=== PATIENT | male | born 1935 | race Caucasian/White ===

== ENCOUNTER 2017-05-21 15:01 | Observation (INO) | payer MEDICARE ==
[~2017-05-21] VITALS: Ht 162.6 cm; Wt 81.0 kg
[2017-05-21] VITALS (7 sets, daily range): BP systolic 120–142; BP diastolic 56–70; PULSE 71–97; RESP 16–18; TEMP 97.5–98.4; O2SAT 95–99
--- NOTE | 2017-05-21 15:14 | PD ---
HPI Chief Complaint: syncope Time Seen by Provider: 15:05 Travel History International Travel<30 days: No Contact w/Intl Traveler<30days: No History of Present Illness HPI 81-year-old male after he climbed a wall had a syncopal event and was found in the parking lot. Patient has an abrasion to the back of his head and his elbow but denies specific complaints at this time. He was called a STEMI alert by the ambulance team as he had a left bundle branch block. Patient does note he is a heart patient but denies any cardiac symptoms currently. He states he is here from [place] and has been here since March. He denies being at her hospital before. He is unsure if he's had a history of a bundle branch block or not. Initial history is limited from patient. [facility] Past Medical History Narrative Medical Hypertension, high cholesterol, coronary artery disease Past Surgical History Narrative Surgical CABG, 6 heart stents, defibrillator Social History Tobacco Use: No Allergies-Medications (Allergen,Severity, Reaction): Coded Allergies: No Known Allergies (Unverified , 05/21/17) Reported Meds & Prescriptions Reported Meds & Active Scripts Active Reported Metoprolol Succinate ER 24 HR (Metoprolol Succinate) 25 Mg Tab 12.5 Mg PO DAILY Crestor (Rosuvastatin Calcium) 5 Mg Tab 5 Mg PO DAILY Entresto (Sacubitril-Valsartan) 97-103 Mg Tab 1 Tab PO BID Aspirin 81 Mg Chew 81 Mg CHEW DAILY Plavix (Clopidogrel Bisulfate) 75 Mg Tab 75 Mg PO DAILY Review of Systems Except as stated in HPI: all other systems reviewed are Neg Physical Exam Narrative GENERAL: 81-year-old male in no apparent distress SKIN: Focused skin assessment warm/dry. Abrasion to right elbow HEAD: Small abrasion to back of head. Normocephalic. EYES: Pupils equal and round. No scleral icterus. No injection or drainage. ENT: No nasal bleeding or discharge. Mucous membranes pink and moist. NECK: Trachea midline. CARDIOVASCULAR: Regular rate and rhythm. RESPIRATORY: No accessory muscle use. Clear to auscultation. Breath sounds equal bilaterally. GASTROINTESTINAL: Abdomen soft, non-tender, nondistended. MUSCULOSKELETAL: No obvious deformities. No clubbing. No cyanosis. No edema. NEUROLOGICAL: Awake. Motor grossly within normal limits. Normal speech. Data Data Last Documented VS Vital Signs Date Time Temp Pulse Resp B/P (MAP) Pulse Ox O2 Delivery O2 Flow Rate FiO2 05/21/17 17:04 133/70 (91) 05/21/17 17:01 77 16 99 Room Air 05/21/17 15:07 97.5 Orders Orders Complete Blood Count With Diff (05/21/17 15:06) Prothrombin Time / Inr (Pt) (05/21/17 15:06) Act Partial Throm Time (Ptt) (05/21/17 15:06) Type And Screen (05/21/17 15:06) Chest, Single Ap (05/21/17 15:06) Ct Brain W/O Iv Contrast(Rout) (05/21/17 15:06) Electrocardiogram (05/21/17 15:06) Iv Access Insert/Monitor (05/21/17 15:06) Ecg Monitoring (05/21/17 15:06) Oximetry (05/21/17 15:06) Sodium Chloride 0.9% Flush (Ns Flush) (05/21/17 15:15) Ckmb (Isoenzyme) Profile (05/21/17 15:06) Comprehensive Metabolic Panel (05/21/17 15:06) Magnesium (Mg) (05/21/17 15:06) Troponin I (05/21/17 15:06) Bilateral Bp Monitoring (05/21/17 15:06) Sodium Chloride 0.9% Flush (Ns Flush) (05/21/17 15:15) Elbow, Complete (4 Vws) (05/21/17 ) Admit Order (Ed Use Only) (05/21/17 17:50) Consult Cardiology (05/21/17 ) Labs Laboratory Tests Test 05/21/17 15:30 White Blood Count 7.3 TH/MM3 Red Blood Count 4.32 MIL/MM3 Hemoglobin 13.8 GM/DL Hematocrit 40.4 % Mean Corpuscular Volume 93.5 FL Mean Corpuscular Hemoglobin 32.0 PG Mean Corpuscular Hemoglobin Concent 34.2 % Red Cell Distribution Width 13.5 % Platelet Count 99 TH/MM3 Mean Platelet Volume 9.6 FL Neutrophils (%) (Auto) 77.5 % Lymphocytes (%) (Auto) 13.8 % Monocytes (%) (Auto) 8.2 % Eosinophils (%) (Auto) 0.2 % Basophils (%) (Auto) 0.3 % Neutrophils # (Auto) 5.7 TH/MM3 Lymphocytes # (Auto) 1.0 TH/MM3 Monocytes # (Auto) 0.6 TH/MM3 Eosinophils # (Auto) 0.0 TH/MM3 Basophils # (Auto) 0.0 TH/MM3 CBC Comment AUTO DIFF Differential Comment AUTO DIFF CONFIRMED Platelet Estimate LOW Platelet Morphology Comment NORMAL Prothrombin Time 10.9 SEC Prothromb Time International Ratio 1.1 RATIO Activated Partial Thromboplast Time 24.0 SEC Blood Urea Nitrogen 16 MG/DL Creatinine 1.14 MG/DL Random Glucose 104 MG/DL Total Protein 7.0 GM/DL Albumin 3.8 GM/DL Calcium Level 8.8 MG/DL Magnesium Level 1.8 MG/DL Alkaline Phosphatase 58 U/L Aspartate Amino Transf (AST/SGOT) 15 U/L Alanine Aminotransferase (ALT/SGPT) 21 U/L Total Bilirubin 1.3 MG/DL Sodium Level 141 MEQ/L Potassium Level 3.7 MEQ/L Chloride Level 105 MEQ/L Carbon Dioxide Level 26.3 MEQ/L Anion Gap 10 MEQ/L Estimat Glomerular Filtration Rate 61 ML/MIN Total Creatine Kinase 89 U/L Troponin I LESS THAN 0.02 NG/ML MDM Medical Decision Making Medical Screen Exam Complete: Yes Emergency Medical Condition: Yes Medical Record Reviewed: Yes (past history confirmed) Interpretation(s) EKG is sinus rhythm at 90 with left bundle branch block without prior for comparison CBC & BMP Diagram 05/21/17 15:30 Total Protein 7.0, Albumin 3.8, Calcium Level 8.8, Magnesium Level 1.8, Alkaline Phosphatase 58, Aspartate Amino Transf (AST/SGOT) 15, Alanine Aminotransferase (ALT/SGPT) 21, Total Bilirubin 1.3 H Last [address] 05/21/17 1506 Signed Impressions: Service Date/Time: Sunday, May 21, 2017 15:31 - CONCLUSION: 1. Senescent changes without acute intracranial abnormality. Aristeo Pedro MD Chest X-Ray 05/21/17 1506 Signed Impressions: Service Date/Time: Sunday, May 21, 2017 15:17 - CONCLUSION: Blunting of the left costophrenic angle either relating to a small effusion or pleural/ proximal scarring. Ryan Garnett Jr., MD Elbow X-Ray 05/21/17 0000 Signed Impressions: Service Date/Time: Sunday, May 21, 2017 15:21 - CONCLUSION: Osteoarthritic changes. No fracture observed. Ryan Garnett Jr., MD Differential Diagnosis Intercranial hemorrhage, fracture, vasovagal, cardiac Narrative Course Will check blood work, imaging and have his defibrillator interrogated and reevaluate, patient currently without any chest pain or shortness of breath so will not call STEMI alert but discuss with cardiology Lab work without emergent findings. Still awaiting pacemaker interrogation. Patient updated and agrees to admit to the hospital for further care. Physician Communication Physician Communication dr arredondo agrees to no stemi given symptoms dr dallas agrees to admit Diagnosis Primary Impression: Syncope Qualified Codes: R55 - Syncope and collapse Additional Impression: S/P CABG (coronary artery bypass graft) Admitting Information Admitting Physician Requests: Observation Martha Santos MD May 21, 2017 15:14
[2017-05-21] MEDS ORDERED: SODIUM CHLORIDE 0.9% FLUSH 10 ML FLUSH IVF PRN ×2 (15:15)
--- NOTE | 2017-05-21 15:34 | RADRPT ---
EXAM DATE/TIME: 05/21/2017 15:17 [facility] COMPARISON: No previous studies available for comparison. INDICATIONS : Trauma to chest post fall today MEDICAL HISTORY : Cardiovascular disease. SURGICAL HISTORY : Stent placement, defibrillator ENCOUNTER: Initial ACUITY: 1 day PAIN SCORE: 0/10 LOCATION: Bilateral chest FINDINGS: A single portable frontal view the chest shows blunting of the left costophrenic angle. No infiltrate s. Heart is at the upper limits of normal in terms of size. Median sternotomy wires. Right-sided paci ng device. No pneumothorax. No appreciable rib fractures. CONCLUSION: Blunting of the left costophrenic angle either relating to a small effusion or pleural/proximal scarr ing. Ryan Garnett Jr., MD on May 21, 2017 at 15:30 Board Certified Radiologist. This report was verified electronically.
--- NOTE | 2017-05-21 15:40 | RADRPT ---
EXAM DATE/TIME: 05/21/2017 15:21 [facility] COMPARISON: No previous studies available for comparison. INDICATIONS : Right elbow pain post fall today MEDICAL HISTORY : None. SURGICAL HISTORY : None. ENCOUNTER: Initial ACUITY: 1 day PAIN SCORE: 8/10 LOCATION: Right entire elbow FINDINGS: 4 views of the right elbow show osteoarthritic changes. Enthesophyte extending off the olecranon proc ess. No fracture or dislocation. No joint effusion. Soft tissues are unremarkable. CONCLUSION: Osteoarthritic changes. No fracture observed. Ryan Garnett Jr., MD on May 21, 2017 at 15:34 Board Certified Radiologist. This report was verified electronically.
--- NOTE | 2017-05-21 15:41 | RADRPT ---
EXAM DATE/TIME: 05/21/2017 15:31 [facility] COMPARISON: No previous studies available for comparison. INDICATIONS : Syncope, fall, laceration to top right of head RADIATION DOSE: 37.07 CTDIvol (mGy) MEDICAL HISTORY : Hypertension. Cardiovascular disease SURGICAL HISTORY : CABG Carotid stent.Defibrillator. ENCOUNTER: Initial ACUITY: 1 day PAIN SCALE: 4/10 LOCATION: Right cranial TECHNIQUE: Multiple contiguous axial images were obtained of the head. Using automated exposure control and adj ustment of the mA and/or kV according to patient size, radiation dose was kept as low as reasonably a chievable to obtain optimal diagnostic quality images. DICOM format image data is available electro nically for review and comparison. FINDINGS: CEREBRUM: Mild to moderate diffuse renal atrophy. The ventricles are normal for degree of atrophy. No evidence of midline shift, mass lesion, hemorrhage or acute infarction. No extra-axial fluid collections are seen. POSTERIOR FOSSA: The cerebellum and brainstem are intact. The 4th ventricle is midline. The cerebellopontine angle i s unremarkable. EXTRACRANIAL: The visualized portion of the orbits is intact. SKULL: The calvaria is intact. No evidence of skull fracture. CONCLUSION: 1. Senescent changes without acute intracranial abnormality. Aristeo Pedro MD on May 21, 2017 at 15:36 Board Certified Radiologist. This report was verified electronically.
[2017-05-21 16:03] LABS: AUTOMATED NEUTROPHIL # 5.7 TH/MM3 (1.8-7.7); BASOPHIL % 0.3 % (0.0-2.0); EOSINOPHIL % 0.2 % (0.0-4.0); HEMATOCRIT 40.4 % (39.0-51.0); HEMOGLOBIN 13.8 GM/DL (13.0-17.0); LYMPH % 13.8 % (9.0-44.0); MEAN CELL VOLUME 93.5 FL (80.0-100.0); MEAN CORPUSCULAR HGB CONC 34.2 % (32.0-36.0); MEAN PLATELET VOLUME 9.6 FL (7.0-11.0); MONO % 8.2 % (0.0-8.0); MONOCYTE # 0.6 TH/MM3 (0-0.9); NEUT % 77.5 % (16.0-70.0); PLATELET COUNT 99 TH/MM3 (150-450); RED BLOOD COUNT 4.32 MIL/MM3 (4.50-5.90); RED CELL DISTRIBUTION WIDTH 13.5 % (11.6-17.2); WHITE BLOOD COUNT 7.3 TH/MM3 (4.0-11.0)
[2017-05-21 16:07] LABS: INTERNATIONAL NORMALIZED RATIO 1.1 RATIO; PROTHROMBIN TIME - PATIENT 10.9 SEC (9.8-11.6)
[2017-05-21 16:28] LABS: ALBUMIN 3.8 GM/DL (3.4-5.0); ALT (GPT) 21 U/L (12-78); BICARBONATE 26.3 MEQ/L (21.0-32.0); BLOOD UREA NITROGEN 16 MG/DL (7-18); CALCIUM 8.8 MG/DL (8.5-10.1); CHLORIDE 105 MEQ/L (98-107); CREATININE 1.14 MG/DL (0.60-1.30); GLOMERULAR FILTRATION RATE 61 ML/MIN (>89); GLUCOSE,RANDOM 104 MG/DL (74-106); MAGNESIUM 1.8 MG/DL (1.5-2.5); SODIUM (NA) 141 MEQ/L (136-145)
[2017-05-21 16:32] LABS: ALKALINE PHOSPHATASE 58 U/L (45-117); AST (GOT) 15 U/L (15-37); TOTAL BILIRUBIN ADULT 1.3 MG/DL (0.2-1.0); TROPONIN I LESS THAN 0.02 NG/ML (0.02-0.05)
[2017-05-21] MEDS ORDERED: PLAV75TA29 PO (17:08)
[2017-05-21] MEDS ORDERED: METO1TAB42 PO (17:08)
[2017-05-21] MEDS ORDERED: ROSU5 PO (17:08)
[2017-05-21] MEDS ORDERED: SACU1TAB4 PO (17:08)
[2017-05-21] MEDS ORDERED: ASPI-516 CHEW (17:08)
[2017-05-21] MEDS ORDERED: ACETAMINOPHEN/HYDROcodone 325 MG/7.5 MG TAB PO PRN (18:30)
[2017-05-21] MEDS ORDERED: MAGNESIUM HYDROXIDE SUSP 30 ML CUP PO PRN (18:30)
[2017-05-21] MEDS ORDERED: ONDANSETRON HCL 4 MG/2 ML VIAL IVP PRN (18:30)
[2017-05-21] MEDS ORDERED: SENNOSIDES 8.6 MG TAB PO PRN (18:30)
[2017-05-21] MEDS ORDERED: ACETAMINOPHEN/HYDROcodone 325 MG/5 MG TAB PO PRN (18:30)
[2017-05-21] MEDS ORDERED: MORPHINE SULFATE 2 MG/ML INJ IV PUSH PRN (18:30)
[2017-05-21] MEDS ORDERED: NALOXONE HCL 0.4 MG/ML AMP IV PUSH PRN (18:30)
[2017-05-21] MEDS: HEPARIN SODIUM - SQ 10,000 UNITS/ML VIAL SQ SCH (19:00)
[2017-05-21] MEDS ORDERED: FISHCAP4 PO (20:07)
[2017-05-21] MEDS: DOCUSATE SODIUM 50 MG/SENNA 8.6 MG TAB PO SCH (20:08)
[2017-05-21 20:52] LABS: TROPONIN I 0.03 NG/ML (0.02-0.05)
--- NOTE | 2017-05-21 23:21 | HHI.HP ---
HPI Service [facility] Physician Unknown Admission Diagnosis syncope Diagnoses: (1) Ventricular fibrillation (2) Syncope and collapse (3) Defibrillator discharge Chief Complaint: Syncope with collapse Travel History International Travel<30 Days: No Contact w/Intl Traveler <30 Da: No Traveled to Known Affected Are: No History of Present Illness Mr. 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 The patient was admitted to the hospitalist group for observation and continued medical management. The patient was out fishing today and got back to the dock from the [employer] ship. He hopped up a wall and exerted himself slightly when getting off the boat instead of taking the stairs. He walked to his car and threw his 3 fish into to the backseat and collapsed outside the car. He denied any dizziness, chest pain, shortness of breath, nausea, diaphoresis, or palpitations prior to the syncopal episode. He had a similar episode 2 years ago prior to his last stent placement and fell off a ladder at that time. He has never felt his AICD fire and it fired three times to revive him per AICD interrogation here in the ED. Review of Systems Except as stated in HPI: all other systems reviewed are Neg Past Family Social History Past Medical History Cardiomyopathy status post AICD in 2007 Coronary artery disease status post 6 heart stents with the last one placed 2 years ago and CABG 3 in 1994 Degenerative arthritis Hypertension Hyperlipidemia Obstructive sleep apnea -wears CPAP when home in [place] Denies diabetes mellitus, lung disease such as COPD/asthma, atrial fibrillation , liver disease, kidney disease, DVT, PE, CVA, hypothyroidism, or cancer . Past Surgical History CABG 3 in 1994 Heart stent placement 6 with the most recent one placed 2 years ago Reported Medications Reported Meds & Active Scripts Active Reported Fish Oil + D3 (Fish Oil-Cholecalciferol) 1,200-1,000 Mg-Unit Cap 1 Cap PO DAILY Metoprolol Succinate ER 24 HR (Metoprolol Succinate) 25 Mg Tab 12.5 Mg PO DAILY Crestor (Rosuvastatin Calcium) 5 Mg Tab 5 Mg PO DAILY Entresto (Sacubitril-Valsartan) 97-103 Mg Tab 1 Tab PO BID Aspirin 81 Mg Chew 81 Mg CHEW DAILY Plavix (Clopidogrel Bisulfate) 75 Mg Tab 75 Mg PO DAILY Spironolactone Allergies: Coded Allergies: No Known Allergies (Unverified , 05/21/17) Family History Mother with CVA at 65 years of age Sister in 90s with Alzheimer's Daughter age 2323 years old from myocarditis . Social History Tobacco: Smoked 1 pack per day for 20 years but quit 30-40 years ago Alcohol: Denies Illicit Drugs: Denies . Physical Exam Vital Signs Vital Signs Date Time Temp Pulse Resp B/P (MAP) Pulse Ox O2 Delivery O2 Flow Rate FiO2 05/21/17 21:18 98.1 74 18 125/60 (81) 95 05/21/17 20:40 05/21/17 20:06 71 18 121/56 (77) 97 Room Air 05/21/17 17:04 133/70 (91) 05/21/17 17:01 77 16 133/70 (91) 99 Room Air 05/21/17 15:13 99 Room Air 05/21/17 15:07 97.5 97 17 142/68 (92) 96 Physical Exam GENERAL: This is a pleasant elderly patient, in no apparent distress. SKIN: No rashes. Cool and dry. Right forearm skin tear with bruising. HEAD: Normocephalic. Excoriation noted to back of head, hemostasis at site. EYES: No scleral icterus. No injection or drainage. ENT: Nose without bleeding, purulent drainage. NECK: Trachea midline. No JVD. CARDIOVASCULAR: Regular rate and rhythm without murmurs, gallops, or rubs. RESPIRATORY: Breath sounds equal bilaterally. No wheezes, rales, or rhonchi. GASTROINTESTINAL: Abdomen soft, non-tender, nondistended. No guarding. MUSCULOSKELETAL: Extremities without clubbing, cyanosis, or edema. No calf tenderness. NEUROLOGICAL: Awake and alert. Motor and sensory grossly within normal limits. Normal speech. . Laboratory Laboratory Tests Test 05/21/17 15:30 05/21/17 19:45 White Blood Count 7.3 Red Blood Count 4.32 Hemoglobin 13.8 Hematocrit 40.4 Mean Corpuscular Volume 93.5 Mean Corpuscular Hemoglobin 32.0 Mean Corpuscular Hemoglobin Concent 34.2 Red Cell Distribution Width 13.5 Platelet Count 99 Mean Platelet Volume 9.6 Neutrophils (%) (Auto) 77.5 Lymphocytes (%) (Auto) 13.8 Monocytes (%) (Auto) 8.2 Eosinophils (%) (Auto) 0.2 Basophils (%) (Auto) 0.3 Neutrophils # (Auto) 5.7 Lymphocytes # (Auto) 1.0 Monocytes # (Auto) 0.6 Eosinophils # (Auto) 0.0 Basophils # (Auto) 0.0 CBC Comment AUTO DIFF Differential Comment AUTO DIFF CONFIRMED Platelet Estimate LOW Platelet Morphology Comment NORMAL Prothrombin Time 10.9 Prothromb Time International Ratio 1.1 Activated Partial Thromboplast Time 24.0 Blood Urea Nitrogen 16 Creatinine 1.14 Random Glucose 104 Total Protein 7.0 Albumin 3.8 Calcium Level 8.8 Magnesium Level 1.8 Alkaline Phosphatase 58 Aspartate Amino Transf (AST/SGOT) 15 Alanine Aminotransferase (ALT/SGPT) 21 Total Bilirubin 1.3 Sodium Level 141 Potassium Level 3.7 Chloride Level 105 Carbon Dioxide Level 26.3 Anion Gap 10 Estimat Glomerular Filtration Rate 61 Total Creatine Kinase 89 119 Troponin I LESS THAN 0.02 0.03 Result Diagram: 05/21/17 1530 05/21/17 1530 Imaging Last Impressions Head CT 05/21/17 1506 Signed Impressions: Service Date/Time: Sunday, May 21, 2017 15:31 - CONCLUSION: 1. Senescent changes without acute intracranial abnormality. Aristeo Pedro MD Chest X-Ray 05/21/17 1506 Signed Impressions: Service Date/Time: Sunday, May 21, 2017 15:17 - CONCLUSION: Blunting of the left costophrenic angle either relating to a small effusion or pleural/ proximal scarring. Ryan Garnett Jr., MD Elbow X-Ray 05/21/17 0000 Signed Impressions: Service Date/Time: Sunday, May 21, 2017 15:21 - CONCLUSION: Osteoarthritic changes. No fracture observed. Ryan Garnett Jr., MD . Caprini VTE Risk Assessment Caprini VTE Risk Assessment: Mod/High Risk (score >= 2) Caprini Risk Assessment Model Point Value = 1 Point Value = 2 Point Value = 3 Point Value = 5 Age 41-60 Minor surgery BMI > 25 kg/m2 Swollen legs Varicose veins or History of unexplained or recurrent spontaneous Oral contraceptives or hormone replacement Sepsis (< 1 month) Serious lung disease, including pneumonia (< 1 month) Abnormal pulmonary function Acute myocardial infarction Congestive heart failure (< 1 month) History of inflammatory bowel disease Medical patient at bed rest Age 61-74 Arthroscopic surgery Major open surgery (> 45 min) Laparoscopic surgery (> 45 min) Malignancy Confined to bed (> 72 hours) Immobilizing plaster cast Central venous access Age >= 75 History of VTE Family history of VTE Factor V Leiden Prothrombin [id number] Lupus anticoagulant Anticardiolipin antibodies Elevated serum homocysteine Heparin-induced thrombocytopenia Other congenital or acquired thrombophilia Stroke (< 1 month) Elective arthroplasty Hip, pelvis, or leg fracture Acute spinal cord injury (< 1 month) Prophylaxis Regimen Total Risk Factor Score Risk Level Prophylaxis Regimen 0-1 Low Early ambulation 2 Moderate Order ONE of the following: *Sequential Compression Device (SCD) *Heparin 5000 units SQ BID 3-4 Higher Order ONE of the following medications: *Heparin 5000 units SQ TID *Enoxaparin/Lovenox 40 mg SQ daily (WT < 150 kg, CrCl > 30 mL/min) *Enoxaparin/Lovenox 30 mg SQ daily (WT < 150 kg, CrCl > 10-29 mL/min) *Enoxaparin/Lovenox 30 mg SQ BID (WT < 150 kg, CrCl > 30 mL/min) AND/OR *Sequential Compression Device (SCD) 5 or more Highest Order ONE of the following medications: *Heparin 5000 units SQ TID (Preferred with Epidurals) *Enoxaparin/Lovenox 40 mg SQ daily (WT < 150 kg, CrCl > 30 mL/min) *Enoxaparin/Lovenox 30 mg SQ daily (WT < 150 kg, CrCl > 10-29 mL/min) *Enoxaparin/Lovenox 30 mg SQ BID (WT < 150 kg, CrCl > 30 mL/min) AND *Sequential Compression Device (SCD) Assessment and Plan Assessment and Plan Mr. 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 The patient was admitted to the hospitalist group for observation and continued medical management. Syncope with collapse V. fib status post AICD discharge 3 -AICD was interrogated in the emergency room -demonstrated ventricular fibrillation 2 episodes requiring 3 shocks to convert -Consult cardiology -appreciate assistance -Serial cardiac enzymes and EKGs to rule out ACS -NPO in preparation for possible cardiac cath -Resume home cardiac medications: Aspirin, metoprolol, Lipitor, entresto Mild renal insufficiency secondary to mild dehydration - BUN 16, creatinine 1.14, eGFR61 - gentle, cautious IVF hydration while NPO with D5NS at 42 cc/hr x 1 bag - recheck BMP and follow trends in renal indices DVT prophylaxis - Heparin 5000 units subq q8h Discussed Condition With Patient, RN, patient's and Dr. Rae . Ila Riggs May 21, 2017 23:21
[2017-05-21] MEDS ORDERED: ATORVASTATIN 10 MG TAB PO ONE (23:45)
[2017-05-21] MEDS ORDERED: METOPROLOL SUCCINATE 25 MG EXTENDED RELEASE TAB PO ONE (23:45)
[2017-05-22] MEDS: SACUBITRIL/VALSARTAN 97 MG-103 MG TAB PO SCH ×2 (01:05→09:23)
[2017-05-22 02:15] VITALS: PULSE 96
[2017-05-22] MEDS ORDERED: DEXT 5%-NACL 0.9% 1000 ML INJ 1,000 ML IV SCH (02:30)
[2017-05-22 02:42] LABS: AUTOMATED NEUTROPHIL # 3.9 TH/MM3 (1.8-7.7); BASOPHIL % 0.6 % (0.0-2.0); EOSINOPHIL % 0.2 % (0.0-4.0); HEMATOCRIT 36.4 % (39.0-51.0); LYMPH % 18.3 % (9.0-44.0); MEAN CELL VOLUME 91.7 FL (80.0-100.0); MEAN CORPUSCULAR HEMOGLOBIN 32.8 PG (27.0-34.0); MEAN CORPUSCULAR HGB CONC 35.8 % (32.0-36.0); MEAN PLATELET VOLUME 9.5 FL (7.0-11.0); MONO % 9.8 % (0.0-8.0); MONOCYTE # 0.5 TH/MM3 (0-0.9); NEUT % 71.1 % (16.0-70.0); PLATELET COUNT 100 TH/MM3 (150-450); RED BLOOD COUNT 3.97 MIL/MM3 (4.50-5.90); RED CELL DISTRIBUTION WIDTH 13.3 % (11.6-17.2); WHITE BLOOD COUNT 5.5 TH/MM3 (4.0-11.0)
[2017-05-22 03:04] LABS: BICARBONATE 25.5 MEQ/L (21.0-32.0); CALCIUM 8.5 MG/DL (8.5-10.1); CREATININE 0.92 MG/DL (0.60-1.30)
[2017-05-22 03:09] LABS: TROPONIN I 0.03 NG/ML (0.02-0.05)
[2017-05-22] MEDS: HEPARIN SODIUM - SQ 10,000 UNITS/ML VIAL SQ SCH ×2 (03:26→11:24)
[2017-05-22 03:36] VITALS: BP 101/50; PULSE 64; RESP 18; TEMP 98; O2SAT 94
[2017-05-22 04:33] VITALS: PULSE 60
[2017-05-22 07:31] VITALS: BP 118/58; PULSE 61; RESP 18; TEMP 98.4; O2SAT 95
[2017-05-22 08:38] VITALS: PULSE 62
[2017-05-22] MEDS: DOCUSATE SODIUM 50 MG/SENNA 8.6 MG TAB PO SCH (09:00)
[2017-05-22] MEDS ORDERED: METOPROLOL SUCCINATE 25 MG EXTENDED RELEASE TAB PO SCH (09:00)
[2017-05-22] MEDS ORDERED: ASPIRIN 81 MG CHEW TAB CHEW SCH (09:00)
[2017-05-22] MEDS ORDERED: CLOPIDOGREL 75 MG TAB PO SCH (09:00)
[2017-05-22] MEDS ORDERED: SPIRONOLACTONE 25 MG TAB PO SCH (09:00)
[2017-05-22] MEDS ORDERED: ATORVASTATIN 10 MG TAB PO SCH (09:00)
--- NOTE | 2017-05-22 11:15 | MB ---
cc: David Beard MD DATE: 05/22/2017 REASON FOR CONSULTATION: Defibrillator fire for ventricular tachycardia/fibrillation. HISTORY OF PRESENT ILLNESS: The patient is a very pleasant 61-year-old gentleman who presents with syncope and ICD interrogation, found that he had 3 appropriate ICD shocks for very fast VT/VF. He is completely asymptomatic. He denies any chest pain, but does note that prior to this, he was exerting himself more than usual. No shortness of breath, lightheadedness or dizziness. The patient has absolutely no recollection of the event. PAST MEDICAL HISTORY: 1. Ischemic cardiomyopathy, prior CABG and stents. 2. EF of 15-20%. 3. [facility] [facility] AICD. 4. Hyperlipidemia. CURRENT MEDICATIONS: 1. Aspirin 81 mg daily. 2. Toprol-XL 12.5 mg daily. 3. Lipitor 10 mg daily. 4. Aldactone 25 mg daily. 5. Entresto 1 tab b.i.d. ALLERGIES: NO KNOWN DRUG ALLERGIES. PHYSICAL EXAMINATION: VITAL SIGNS: Afebrile, pulse 61, respiratory rate 18, BP 118/58, saturating 95% on room air. GENERAL: A pleasant, well-appearing gentleman in no distress. NECK: No JVD. LUNGS: Clear to auscultation bilaterally. CARDIOVASCULAR: Regular rate and rhythm. No murmurs appreciated. ABDOMEN: Benign. EXTREMITIES: No edema. LABORATORY DATA: Sodium 141, potassium 3.7, chloride 105, bicarbonate 26.3, BUN 16, creatinine 1.14, glucose 104. Cardiac enzymes are negative x3. INR is 1.1. White count 5.5, hematocrit 36.4, platelets 100. EKG shows sinus rhythm with left bundle branch block. [facility] [facility] ICD interrogation shows 2 sequential episodes of ventricular tachycardia/fibrillation requiring 3 total shocks. IMPRESSION AND RECOMMENDATIONS: 1. Ventricular dysrhythmia. The patient had a severe ventricular tachyarrhythmia requiring 3 total shocks to eliminate. He had absolutely no warning. I will add amiodarone 200 mg b.i.d. and, given there was some exertional component to his syncope, I will have him undergo a nuclear stress test as well. I did advise the patient that he could not drive for at least 6 months given this episode and he will have to be followed up by his primary distribution system operator quite closely. Should his nuclear stress test be nonischemic. He could be discharged home to followup with his primary distribution system operator in [place]. I did give him my card. I would be happy to see him once a year while he is down here snow[place]bird[place]. Thank you again for the opportunity to participate in this patient's care. MD CARLY De La Rosa/MAYO , 10:57 AM , 11:14 AM
[2017-05-22 11:30] VITALS: BP 130/67; PULSE 76; RESP 18; TEMP 98.7; O2SAT 95
[2017-05-22] MEDS ORDERED: AMIO200T PO (11:31)
--- NOTE | 2017-05-22 11:31 | HHI.DCPOC ---
Discharge Care Plan Diagnosis: (1) Syncope and collapse (2) Defibrillator discharge (3) Ventricular fibrillation Goals to Promote Your Health * To prevent worsening of your condition and complications * To maintain your health at the optimal level Directions to Meet Your Goals Take your medications as prescribed Follow your dietary instruction Follow activity as directed Keep your appointments as scheduled Take your immunizations and boosters as scheduled If your symptoms worsen call your PCP, if no PCP go to Urgent Care Center or Emergency Room Smoking is Dangerous to Your Health. Avoid second hand smoke Call the 24-hour hour crisis hotline for domestic abuse at Mindy Duggan PA-C May 22, 2017 11:31
[2017-05-22] MEDS ORDERED: AMIODARONE 200 MG TAB PO SCH (12:00)
[2017-05-22] MEDS ORDERED: REGADENOSON INJ 0.4 MG/5 ML SYR ONE (12:10)
--- NOTE | 2017-05-22 14:21 | RADRPT ---
EXAM DATE/TIME: 05/22/2017 12:04 [facility] COMPARISON: No previous studies available for comparison. INDICATIONS : Syncope. DOSE: 25.5 mCi Tc99m Myoview at stress. 8.5 mCi Tc99m Myoview at rest. 0.4 mg Lexiscan STRESS SYMPTOMS: Shortness of breath, chest pressure, headache. EJECTION FRACTION: 35% MEDICAL HISTORY : Hypertension. SURGICAL HISTORY : CABG Coronary artery stent. AICD placed. ENCOUNTER: Initial ACUITY: 1 day PAIN SCALE: 2/10 LOCATION: chest TECHNIQUE: The patient underwent pharmacologic stress with infusion of prescribed dose. Continuous ECG tracing was monitored during stress. Gated SPECT imaging was performed after stress and conventional SPECT i maging was performed at rest. The examination was performed on a SPECT/CT scanner, both attenuation and non-corrected datasets were reviewed. FINDINGS: DISTRIBUTION: The maximum perfused segment at stress is in the septal wall. PERFUSION STUDY: There is a large fixed defect involving much of the lateral wall and portions of the lateral aspects of the anterior and inferior millard. This area of borderline mild ischemia at the apical portion of th e anterior wall with decreased activity on stress images compared to rest images. The difference in a ctivity is in the order of 20%. No other potential areas of ischemia are identified. GATED STUDY: There is global hypokinesis with decreased ejection fraction. CONCLUSION: 1. Large fixed defect involving much the lateral wall and portions of the lateral aspects of the ante rior and inferior millard. This is consistent with a prior large infarct. 2. Borderline mild ischemia in the apical portion of the anterior wall. 3. Global hypokinesis and reduced ejection fraction. RISK CATEGORY: High (>3% Annual Mortality Rate) Hamlet Smith MD on May 22, 2017 at 14:11 Board Certified Radiologist. This report was verified electronically.
--- NOTE | 2017-05-22 14:44 | HHI.PR ---
Subjective Remarks Follow up for syncope, VF/VT s/p AICD fire x3. The patient reports no acute events overnight. Denies any headache, lightheadedness, dizziness, chest pain, palpitations, shortness of breath, or abdominal complaints. He wants to go home. He plans to return to [place] in 1 week, and follow up with his defense attorney at [facility]. Objective Vitals Vital Signs Date Time Temp Pulse Resp B/P (MAP) Pulse Ox O2 Delivery O2 Flow Rate FiO2 05/22/17 11:30 98.7 76 18 130/67 (88) 95 05/22/17 07:31 98.4 61 18 118/58 (78) 95 05/22/17 04:33 60 05/22/17 03:36 98.0 64 18 101/50 (67) 94 05/22/17 02:15 96 05/21/17 23:27 98.4 72 18 120/60 (80) 96 05/21/17 21:18 98.1 74 18 125/60 (81) 95 05/21/17 20:40 05/21/17 20:06 71 18 121/56 (77) 97 Room Air 05/21/17 17:04 133/70 (91) 05/21/17 17:01 77 16 133/70 (91) 99 Room Air 05/21/17 15:13 99 Room Air 05/21/17 15:07 97.5 97 17 142/68 (92) 96 Result Diagram: 05/22/17 0220 05/22/17 0220 Imaging Last Impressions Head CT 05/21/17 1506 Signed Impressions: Service Date/Time: Sunday, May 21, 2017 15:31 - CONCLUSION: 1. Senescent changes without acute intracranial abnormality. Aristeo Pedro MD Chest X-Ray 05/21/17 1506 Signed Impressions: Service Date/Time: Sunday, May 21, 2017 15:17 - CONCLUSION: Blunting of the left costophrenic angle either relating to a small effusion or pleural/ proximal scarring. Ryan Garnett Jr., MD Elbow X-Ray 05/21/17 0000 Signed Impressions: Service Date/Time: Sunday, May 21, 2017 15:21 - CONCLUSION: Osteoarthritic changes. No fracture observed. Ryan Garnett Jr., MD Objective Remarks GENERAL: Well-nourished, well-developed elderly male patient in NAD. SKIN: Warm and dry. No rash. HEENT: Normocephalic. Atraumatic.Pupils equal and round. Mucous membranes pink and moist. CARDIOVASCULAR: Regular rate and rhythm. No murmur appreciated. RESPIRATORY: No accessory muscle use. Clear to auscultation. Breath sounds equal bilaterally. GASTROINTESTINAL: Abdomen soft, non-tender, nondistended. Normoactive bowel sounds x4. MUSCULOSKELETAL: No obvious deformities. Extremities without clubbing, cyanosis , or edema. NEUROLOGICAL: Awake and alert. No obvious cranial nerve deficits. Motor grossly within normal limits. Normal speech. PSYCHIATRIC: Appropriate mood and affect; insight and judgment normal. Medications and IVs Current Medications Medications (Trade) Dose Ordered Sig/Anibal Route Start Time Stop Time Status Last Admin (NS Flush) 2 ml UNSCH PRN IVF 05/21/17 15:15 (NS Flush) 2 ml UNSCH PRN IVF 05/21/17 15:15 (Zofran Inj) 4 mg Q6H PRN IVP 05/21/17 18:30 (Heparin Inj) 5,000 units Q8H SQ 05/21/17 19:00 05/22/17 11:24 ([place] 5-325 Mg) 1 tab Q4H PRN PO 05/21/17 18:30 ([place] 7.5-325 Mg) 1 tab Q4H PRN PO 05/21/17 18:30 (Morphine Inj) 4 mg Q3H PRN IV PUSH 05/21/17 18:30 (Narcan Inj) 0.4 mg UNSCH PRN IV PUSH 05/21/17 18:30 (Kathia-Colace) 1 tab BID PO 05/21/17 21:00 (Milk Of Magnesia Liq) 30 ml Q12H PRN PO 05/21/17 18:30 (Senokot) 17.2 mg Q12H PRN PO 05/21/17 18:30 (Aspirin Chew) 81 mg DAILY CHEW 05/22/17 09:00 05/22/17 09:17 (Plavix) 75 mg DAILY PO 05/22/17 09:00 Future Hold (Toprol Xl) 12.5 mg DAILY PO 05/22/17 09:00 05/22/17 09:20 (Entresto 97-103 Mg) 1 tab BID PO 05/21/17 21:00 05/22/17 09:23 (Lipitor) 10 mg DAILY PO 05/22/17 09:00 05/22/17 09:18 Dextrose/Sodium Chloride 1,000 ml @ 42 mls/hr [id number] IV 05/22/17 02:30 05/23/17 02:18 05/22/17 03:26 (Aldactone) 25 mg DAILY PO 05/22/17 09:00 05/22/17 09:17 (Cordarone) 200 mg Q12HR PO 05/22/17 12:00 05/22/17 13:53 A/P Problem List: (1) Ventricular fibrillation ICD Code: I49.01 - Ventricular fibrillation (2) Syncope and collapse ICD Code: R55 - Syncope and collapse (3) Defibrillator discharge ICD Code: Z45.02 - Encounter for adjustment and management of automatic implantable cardiac defibrillator Assessment and Plan 81 year-old male snowbird from [place] with a history of CAD with 6 coronary stents and CABG 3, HTN, HLD, cardiomyopathy with an EF of 15-20% s/p AICD placement, presented to the ER following a syncopal episode after a fishing trip this morning. Syncope with collapse, V. fib status post AICD discharge 3: verified with AICD interrogation demonstrated ventricular fibrillation 2 episodes requiring 3 shocks to convert -ACS ruled out with negative serial cardiac enzymes x3 -Resume home cardiac medications: Aspirin, metoprolol, Lipitor, entresto -Consult cardiology, seen by Dr. Beard, recommended starting Amiodarone 200mg bid, and Lexiscan prior to discharge -Nuclear stress test showed Large fixed defect involving much the lateral wall and portions of the lateral aspects of the anterior and inferior millard, consistent with a prior large infarct; Borderline mild ischemia in the apical portion of the anterior wall. -Discussed results of stress test with Dr. Beard, ok to discharge, gave the patient copy of report and instructed to f/up with defense attorney at [facility] as soon as he returns home -Thoroughly discussed in presence of patient and family recommendation of no driving for at least 6months if episode free, or cleared by PCP/defense attorney, patient verbalized understanding -Patient and family verbalized understanding, all questions answered Mild renal insufficiency secondary to mild dehydration: BUN 16, creatinine 1.14 , eGFR61. Suspect component of dehydration as patient was outside on fishing charter all day -gentle, cautious IVF hydration while NPO with D5NS at 42 cc/hr x 1 bag -repeat BMP shows improvement with Cr 0.92 DVT prophylaxis- Heparin 5000 units subq q8h Discharge Planning Discharge patient to home Condition on discharge: Stable Heart Healthy Diet as tolerated Ad Claire activity, NO DRIVING Rx written: amiodarone 200mg bid Follow-up with primary care physician and cardiology Mindy Duggan PA-C May 22, 2017 2:44 pm
--- NOTE | 2017-05-22 20:10 | EKG ---
Date Performed: 05/21/2017 Time Performed: 15:02:31 PTAGE: 81 years EKG: Sinus rhythm WITH FIRST DEGREE AV BLOCK LEFT BUNDLE BRANCH BLOCK ABNORMAL ECG NO PREVIOUS TRACING DOCTOR: Rhonda Bethea Interpretating Date/Time 05/22/2017 20:08:26
--- NOTE | 2017-05-22 20:10 | EKG ---
Date Performed: 05/21/2017 Time Performed: 20:29:55 PTAGE: 81 years EKG: Sinus rhythm WITH FIRST DEGREE AV BLOCK LEFT BUNDLE BRANCH BLOCK ABNORMAL ECG Since the PREVIOUS TRACING , no significant change noted PREVIOUS TRACIN05/21/2017 15.02 DOCTOR: Rhonda Bethea Interpretating Date/Time 05/22/2017 20:08:35
--- NOTE | 2017-05-22 20:11 | EKG ---
Date Performed: 05/22/2017 Time Performed: 01:10:16 PTAGE: 81 years EKG: Sinus rhythm WITH FIRST DEGREE AV BLOCK WITH OCCASIONAL SUPRAVENTRICULAR PREMATURE COMPLEXES LEFT BUNDLE BRANCH B LOCK ABNORMAL ECG Since the PREVIOUS TRACING , no significant change noted PREVIOUS TRACIN05/21/2017 20.29 DOCTOR: Rhonda Bethea Interpretating Date/Time 05/22/2017 20:08:43
== END 2017-05-22 17:48 | disposition home or self-care (01) ==
LOC: NEPC 15:01 → NEDA 17:52 → NEPFCDU 20:36
PROVIDERS: ADMIT Hospitalist; ATTEND Hospitalist
DX: I49.01 Ventricular fibrillation (principal); R55 Syncope and collapse; S00.01XA Abrasion of scalp, initial encounter; S50.311A Abrasion of right elbow, initial encounter; W19.XXXA Unspecified fall, initial encounter; I44.7 Left bundle-branch block, unspecified; I25.5 Ischemic cardiomyopathy; I25.10 Atherosclerotic heart disease of native coronary artery without angina pectoris; I10 Essential (primary) hypertension; E78.00 Pure hypercholesterolemia, unspecified; E78.5 Hyperlipidemia, unspecified; M19.90 Unspecified osteoarthritis, unspecified site; G47.33 Obstructive sleep apnea (adult) (pediatric); Z95.810 Presence of automatic (implantable) cardiac defibrillator; Z95.1 Presence of aortocoronary bypass graft; Z95.5 Presence of coronary angioplasty implant and graft; Z99.81 Dependence on supplemental oxygen; Z87.891 Personal history of nicotine dependence
CPT/HCPCS: 70450; 71045; 73080; 78452; 80048; 80053; 82550; 82948; 83690; 83735; 84484; 85025; 85610; 85730; 86850; 86900; 86901; 93005; 93017; 96360; 96372; 99285; A9502; G0378; J1644; J2785; J7042